=== PATIENT | female | born 1975 | race Hispanic/Latino ===

== ENCOUNTER 2017-06-24 10:43 | Emergency (ER) | payer BC, OTHER ==
[~2017-06-24] VITALS: Ht 162.6 cm; Wt 61.2 kg
[~2017-06-24 10:43] MED LIST: AMBIEN10 MG PO
[2017-06-24] MEDS ORDERED: DIAZEPAM 2 MG TAB PO ONE (11:00)
[2017-06-24] MEDS ORDERED: KETOROLAC TROMETHAMINE 60 MG/2 ML VIAL IM ONE (11:00)
[2017-06-24] MEDS ORDERED: HYDROCODONE/APAP 7.5MG-325MG 1 EA TAB PO PRN (11:00)
--- NOTE | 2017-06-24 12:57 | Diagnostic Imaging Report ---
EXAMINATION: Head and cervical spine CT without contrast. HISTORY: Head and neck pain, dizziness for the last few days COMPARISON: None. TECHNIQUE: Multidetector axial images were obtained without contrast from the foramen magnum to the vertex and through the cervical spine. The images were reconstructed using brain and bone algorithms. Thin section brain images were reformatted into coronal and sagittal planes. HEAD CT FINDINGS: Skull: No lytic or blastic lesions. No fractures. Parenchyma: Normal. No mass, hemorrhage or CT evidence of acute vascular insult. Brain volume: Normal for age. Ventricles: No hydrocephalus or displacement. Arteries: No density suggestive of thrombus. Dural sinuses: No abnormal density. Extra-axial spaces: No abnormal density. Foramen magnum: No mass, Chiari malformation, or basilar invagination. Sella: No obvious mass. Paranasal/mastoid sinuses: Imaged portions unremarkable. CERVICAL SPINE CT FINDINGS: Alignment:Normal alignment and lordosis. Soft tissues: Normal. Vertebrae: Normal height and density. No acute fracture, infection or neoplasm. Intervertebral disk degenerative changes: None IMPRESSION: 1. Normal head CT. 2. Normal cervical spine CT. Note: Acute postraumatic spinal cord, vascular or ligamentous injuries cannot be excluded on the basis of the current examination and in the adequate setting of trauma. Signed by: Dr. Adrienne Kan M.D. on 06/24/2017 12:53 PM
[2017-06-24 15:11] VITALS: BP 122/83
== END 2017-06-24 16:22 | disposition home or self-care (01) ==
LOC: ER 10:43
DX: R42 Dizziness and giddiness (principal); M54.2 Cervicalgia; M54.12 Radiculopathy, cervical region
CPT/HCPCS: 70450; 72125; 99284; J1885

== ENCOUNTER → 2019-12-26 | Outpatient (CLI) | payer OTHER ==
--- NOTE | 2019-12-26 13:01 | Diagnostic Imaging Report ---
Thyroid Ultrasound Clinical Diagnosis: Thyroid nodule Comparison: None recent Technique: Multiple images were submitted for interpretation. Multiple longitudinal and transaxial images were performed with a high frequency linear transducer. Report: Right lobe: The right lobe measures 4.5 x 1.2 x 1.3. There is a single nodule measuring 0.6 cc x 0.4 AP x 0.4 transverse cm, situated posteriorly and inferiorly. It is hypoechoic compared with the surrounding parenchyma. There is almost completely solid. The margins are smooth. There are macrocalcifications with posterior shadowing. TI-RADS 5. Annual follow-up for 5 years recommended by ACR. Left lobe: The left lobe measures 4.4 x 1.3 x 1.4 cm. There are no nodules, cysts, calcifications or masses. The isthmus measures 3 mm. Homogenous texture. Impression: Ultrasound of thyroid with recommendations as above. Signed by: Emiliano Matson MD on 12/26/2019 12:57 PM
== END ==
LOC: US 11:29
PROVIDERS: ATTEND Family Medicine
DX: E04.1 Nontoxic single thyroid nodule (principal)
CPT/HCPCS: 76536